=== PATIENT | female | born 1945 | race Caucasian/White ===

== ENCOUNTER → 2017-11-08 | Outpatient (CLI) | payer OTHER ==
[~2017-11-08] MED LIST: GLUCHON PO; HYDACE5 PO; MAGOXI400 PO; METCAR500 PO; NAPR500EC PO; PRED20 PO
[2017-11-08 14:49] LABS: Source, Urine Voided
[2017-11-08 15:49] LABS: Appearance, Urine Clear (Clear); Bilirubin, Urine Neg (Neg); Blood, Urine 4+ (Neg); Color, Urine Yellow (P-Yellow); Glucose Qualitative, Urine Neg (Neg); Ketones, Urine Neg (Neg); Leukocyte Esterase, Urine Neg (Neg); Nitrite, Urine Neg (Neg); Protein, Urine Neg (Neg); Urobilinogen, Urine NORM (Normal)
[2017-11-08 15:59] LABS: White Blood Cells, Urine 0-2 /hpf (0-5)
[2017-11-08 16:00] LABS: Bacteria Rare /hpf; Squamous Epithelial Cells Rare /hpf (Few)
== END | disposition home or self-care (01) ==
LOC: LAB 14:47 → LAB SHORT 14:47 → LAB FUT 11-03 17:05
PROVIDERS: Family Medicine
DX: R31.9 Hematuria, unspecified (principal)
CPT/HCPCS: 81001

== ENCOUNTER → 2019-07-18 | Outpatient (CLI) | payer OTHER ==
[~2019-07-18] MED LIST changes: +Calcium Citrat200 MG PO; +ESCI10 PO; +Robaxin-750750 MG PO; +VALA500 PO; +VITAMIN D-32000 UNIT PO
[2019-07-19 11:49] LABS: Candida species (DNA Probe) Negative (NEGATIVE); G. vaginalis (DNA Probe) Negative (NEGATIVE); T. vaginalis (DNA Probe) Negative (NEGATIVE)
== END | disposition home or self-care (01) ==
LOC: LAB SHORT 18:44 → LAB 18:44
PROVIDERS: Obstetrics & Gynecology
DX: N76.0 Acute vaginitis (principal)
CPT/HCPCS: 87480; 87510; 87660

== ENCOUNTER 2019-07-22 12:42 | Day surgery (SDC) | payer OTHER ==
[~2019-07-22 12:42] MED LIST changes: -Calcium Citrat200 MG PO; -VALA500 PO; -VITAMIN D-32000 UNIT PO
[2019-07-22] MEDS ORDERED: VALA500 PO (13:31)
[2019-07-22] MEDS ORDERED: VITAMIN D-32000 UNIT PO (13:32)
[2019-07-22] MEDS ORDERED: Calcium Citrat200 MG PO (13:33)
== END 2019-07-22 17:00 | disposition home or self-care (01) ==
PROVIDERS: Podiatrist Foot & Ankle Surgery
PROC: 0SGL04Z Fusion of Left Tarsometatarsal Joint with Internal Fixation Device, Open Approach (ICD-10-PCS; principal; 2019-07-22 14:15)
DX: M19.072 Primary osteoarthritis, left ankle and foot (principal); M79.672 Pain in left foot; Z79.899 Other long term (current) drug therapy

== ENCOUNTER → 2020-01-01 | Outpatient (CLI) | payer OTHER ==
[~2020-01-01] MED LIST changes: +Calcium Citrat200 MG PO; +VALA500 PO; +VITAMIN D-32000 UNIT PO
== END | disposition home or self-care (01) ==
LOC: LAB SHORT 18:28 → LAB EV 18:28
DX: N94.89 Other specified conditions associated with female genital organs and menstrual cycle (principal)
CPT/HCPCS: 87529

== ENCOUNTER → 2020-07-10 | Outpatient (CLI) | payer MEDICARE | LOC: EDSTATUS 09:23 → LAB 13:15 → LAB SHORT 13:15 | DX: L08.9 Local infection of the skin and subcutaneous tissue, unspecified (principal); R21 Rash and other nonspecific skin eruption | CPT/HCPCS: 87070; 87205; 87798 ==

== ENCOUNTER → 2021-01-13 | Outpatient (CLI) | payer MEDICARE ==
[2021-01-15 15:19] LABS: CORONAVIRUS (COVID19) CSH-NRL Negative (Negative)
== END | disposition home or self-care (01) ==
LOC: LAB 17:22 → LAB SHORT 17:22
PROVIDERS: Physician Assistant
DX: Z20.822 Contact with and (suspected) exposure to COVID-19 (principal)
CPT/HCPCS: U0003

== ENCOUNTER → 2021-09-27 | Outpatient (CLI) | payer MEDICARE ==
[2021-09-27 15:12] LABS: Source, Urine Clean Catch
[2021-09-27 16:31] LABS: Bacteria Few /hpf; Squamous Epithelial Cells Few /hpf (Few); White Blood Cells, Urine 0-2 /hpf (0-5)
== END ==
LOC: LAB 12:15 → LAB SHORT 12:15
PROVIDERS: Family Medicine
DX: R31.29 Other microscopic hematuria (principal)
CPT/HCPCS: 81015; 87086

== ENCOUNTER → 2021-10-19 | Outpatient (CLI) | payer MEDICARE ==
[2021-10-20 11:50] LABS: Candida species (DNA Probe) Negative (NEGATIVE); G. vaginalis (DNA Probe) Negative (NEGATIVE); T. vaginalis (DNA Probe) Negative (NEGATIVE)
== END | disposition home or self-care (01) ==
LOC: LAB 11:25 → LAB SHORT 11:25
PROVIDERS: Obstetrics & Gynecology
DX: N95.2 Postmenopausal atrophic vaginitis (principal)
CPT/HCPCS: 87480; 87510; 87660

== ENCOUNTER → 2021-10-26 | Outpatient (CLI) | payer MEDICARE | LOC: LAB SHORT 09:30 → LAB 09:30 | PROVIDERS: Family Medicine | DX: Z01.419 Encounter for gynecological examination (general) (routine) without abnormal findings (principal) | CPT/HCPCS: G0145 ==

== ENCOUNTER → 2021-11-01 | Outpatient (CLI) | payer MEDICARE | END | disposition home or self-care (01) | LOC: LAB SHORT 15:20 → PLD 15:20 | DX: D48.5 Neoplasm of uncertain behavior of skin (principal) | CPT/HCPCS: 88305 ==

== ENCOUNTER → 2021-11-05 | Outpatient (CLI) | payer MEDICARE | END | disposition home or self-care (01) | LOC: LAB SHORT 18:32 → LAB 18:32 | DX: M79.605 Pain in left leg (principal) | CPT/HCPCS: 85379 ==

== ENCOUNTER → 2022-04-04 | Outpatient (CLI) | payer OTHER | END | disposition home or self-care (01) | LOC: LAB SHORT 07:24 → PLD 07:24 | DX: B49 Unspecified mycosis (principal) | CPT/HCPCS: 88305; 88312 ==

== ENCOUNTER 2022-08-17 21:17 | Emergency (ER) | payer OTHER ==
[~2022-08-17] VITALS: Ht 167.6 cm; Wt 73.5 kg
[2022-08-17 21:20] VITALS: BP 130/82
[2022-08-17] MEDS ORDERED: Norco 5-325 Ta1 EACH PO (22:27)
[2022-08-17] MEDS ORDERED: IBUP600 PO (22:27)
== END 2022-08-17 22:45 | disposition home or self-care (01) ==
LOC: ER 21:17
DX: S82.855A Nondisplaced trimalleolar fracture of left lower leg, initial encounter for closed fracture (principal); X50.1XXA Overexertion from prolonged static or awkward postures, initial encounter; Z88.8 Allergy status to other drugs, medicaments and biological substances; Z79.899 Other long term (current) drug therapy
CPT/HCPCS: 73610; A9270

== ENCOUNTER → 2023-02-10 | Outpatient (CLI) | payer OTHER ==
[~2023-02-10] MED LIST changes: +IBUP600 PO; +Norco 5-325 Ta1 EACH PO
== END ==
LOC: LAB SHORT 18:04 → LAB 18:04
DX: L98.9 Disorder of the skin and subcutaneous tissue, unspecified (principal)
CPT/HCPCS: 87081